=== PATIENT | male | born 1945 | race Caucasian/White ===

== ENCOUNTER 2020-01-02 06:42 | Outpatient (CLI) | payer OTHER, MEDICARE ==
[~2020-01-02 06:42] MED LIST: ASPI325T17 PO; CHLO25TA PO; DIPH25CA61 PO; EZET10TA70 PO; FISH OIL PO; FLEC50TA25 PO; FLUT1DIS3 INH; GLUCOSAMINE CHONDROI PO; LOSA50TA14 PO; METO50TA82 PO; MOME13HF INH; MULT-516 PO; PANT40TA3 PO; [UNRECOGNIZED DRUG - REMARK] PO
[2020-01-02] MEDS ORDERED: REGADENOSON 0.4 MG/5 ML SYRINGE ONE (07:37)
== END 2020-01-02 23:59 | disposition home or self-care (01) ==
LOC: CFH 06:42
PROVIDERS: ATTEND Internal Medicine Cardiovascular Disease
DX: I08.8 Other rheumatic multiple valve diseases (principal); I11.9 Hypertensive heart disease without heart failure; I25.10 Atherosclerotic heart disease of native coronary artery without angina pectoris
CPT/HCPCS: 78452; 93017; 93306; A9502; J2785

== ENCOUNTER 2020-06-17 11:05 | Day surgery (SDC) | payer OTHER, MEDICARE ==
[~2020-06-17] VITALS: Ht 185.4 cm; Wt 104.5 kg
[2020-06-17] MEDS ORDERED: PLEASE ENTER HEIGHT AND WEIGHT MC SCH (12:30)
[2020-06-17] MEDS ORDERED: ASPIRIN 325 MG TABLET EC PO ONE (12:30)
[2020-06-17 12:53] LABS: BASOPHILS % (AUTO) 1 % (0-1); EOSINOPHILS % (AUTO) 2 % (1-7); LYMPHOCYTES % (AUTO) 31 % (22-44); MEAN CORPUSCULAR HEMOGLOBIN 31.2 pg (27.5-34.5); MEAN CORPUSCULAR HGB CONC 34.5 g/dL (33.2-36.2); MEAN PLATELET VOLUME 10.2 fL (7.4-10.4); MONOCYTES % (AUTO) 13 % (2-9); NEUTROPHILS % (AUTO) 54 % (42-75); PLATELET COUNT 165 x10^3/uL (130-400); RED BLOOD COUNT 5.42 x10^6/uL (4.38-5.82); RED CELL DISTRIBUTION WIDTH 13.5 % (9.4-14.8)
[2020-06-17 12:54] LABS: MD NO
[2020-06-17 13:08] LABS: ANION GAP 6 mmol/L (5-15); CALCIUM 9.4 mg/dL (8.5-10.1); CHLORIDE 110 mmol/L (98-107); CREATININE 1.38 mg/dL (0.7-1.3)
[2020-06-17] MEDS ORDERED: MELO15TA24 PO (13:20)
[2020-06-17] MEDS ORDERED: TIOT18CA INH (13:20)
[2020-06-17] MEDS ORDERED: AMLO-211 PO (13:20)
[2020-06-17] MEDS ORDERED: FLEC100T PO (13:20)
[2020-06-17] MEDS ORDERED: HYDROCHLOROTH12.5 MG PO (13:20)
[2020-06-17] MEDS ORDERED: TICAGRELOR 90 MG TABLET ONE (14:01)
[2020-06-17] MEDS ORDERED: BIVALIRUDIN 250 MG ONE (14:01)
[2020-06-17] MEDS ORDERED: FENTANYL PF 100 MCG/2ML ONE (14:01)
[2020-06-17] MEDS ORDERED: LIDOCAINE-MPF 1%, 5ML ONE (14:01)
[2020-06-17] MEDS ORDERED: MIDAZOLAM 1 MG/ML, 5ML ONE (14:01)
[2020-06-17] MEDS ORDERED: HEPARIN 1,000 UNITS/ML, 10ML ONE (14:01)
[2020-06-17] MEDS ORDERED: VERAPAMIL 2.5 MG/ML, 2ML ONE (14:01)
[2020-06-17] MEDS ORDERED: SODIUM CHLORIDE 0.9% 1,000 ML IV SCH (15:30)
== END 2020-06-17 17:01 | disposition home or self-care (01) ==
LOC: CACL 11:05
PROVIDERS: ATTEND Internal Medicine Cardiovascular Disease
DX: R94.39 Abnormal result of other cardiovascular function study (principal); I49.3 Ventricular premature depolarization; I20.0 Unstable angina; I42.9 Cardiomyopathy, unspecified; I10 Essential (primary) hypertension; E78.5 Hyperlipidemia, unspecified; E66.3 Overweight; Z68.33 Body mass index [BMI] 33.0-33.9, adult; Z79.1 Long term (current) use of non-steroidal anti-inflammatories (NSAID); Z79.899 Other long term (current) drug therapy
CPT/HCPCS: 36415; 80048; 85025; 93458; C1769; C1894; J1644; J2250; J3010; Q9967; 99156; J0583